=== PATIENT | female | born 1945 | race Caucasian/White ===

== ENCOUNTER 2020-10-10 16:54 | Emergency (ER) | payer MEDICARE | END 2020-10-10 17:25 | disposition home or self-care (01) | LOC: BURERS 16:54 | DX: H11.31 Conjunctival hemorrhage, right eye (principal); I10 Essential (primary) hypertension; E78.5 Hyperlipidemia, unspecified; Z79.899 Other long term (current) drug therapy | CPT/HCPCS: 99283 ==

== ENCOUNTER 2021-09-19 23:08 | Emergency (ER) | payer MEDICARE ==
[~2021-09-19 23:08] MED LIST: NS 0.9% w/ 20 MEQ KCL 1,000 ML BAG ONE
[2021-09-19] MEDS ORDERED: Lidocaine 1% w/Epinephrine 1:100K 20 ML VIAL ONE (23:51)
[2021-09-19] MEDS ORDERED: Boostrix 0.5 ML (Tdap) VIAL ONE (23:51)
[2021-09-19] MEDS ORDERED: Ondansetron PF 4 MG/2 ML Vial ONE (23:53)
[2021-09-19 23:58] LABS: ALT (SGPT) 68 U/L (8-55); AST (SGOT) 69 U/L (5-34); Alkaline Phosphatase 69 U/L (40-110); Anion Gap 15 mmol/L (10-20); BUN (Urea Nitrogen) 18 mg/dL (9.8-20.1); Bilirubin, Total 0.7 mg/dL (0.2-1.2); Calc. Creatinine Clearance 0 mL/min (70-130); Calcium 9.7 mg/dL (7.8-10.44); Carbon Dioxide 26 mmol/L (23-31); Chloride 100 mmol/L (98-107); Globulin 1.8 g/dL (2.4-3.5); Glucose 128 mg/dL (83-110); Hemoglobin 12.7 g/dL (12.0-16.0); Mean Corpuscular HGB CONC 35.2 g/dL (32.0-36.0); Mean Corpuscular Hemoglobin 32.8 pg (27.0-31.0); Mean Corpuscular Volume 93.1 fL (78.0-98.0); Mean Platelet Volume 6.9 fL (7.4-10.4); Platelet Count 201 thou/uL (130-400); Protein, Total 5.8 g/dL (5.8-8.1); RBC Distribution Width 11.6 % (11.5-14.5); Red Blood Cell (RBC) Count 3.87 mill/uL (4.20-5.40); Sodium 138 mmol/L (136-145); White Blood Cell (WBC) Count 5.7 thou/uL (4.8-10.8)
[2021-09-20 00:07] LABS: Potassium 2.7 mmol/L (3.5-5.1)
[2021-09-20] MEDS ORDERED: Bacitracin 1 PK ONE (00:26)
[2021-09-20 00:37] LABS: Eosinophils 1 % (0-10); Lymphocytes 40 % (21-51); MDiff Complete? YES; Monocytes 8 % (0-10); Neutrophil 51 % (42-75); Platelet Morphology Comment Appears Adequate; RBC Morphology Normal
[2021-09-20] MEDS ORDERED: Potassium Chloride 20 MEQ TAB ONE (00:40)
[2021-09-20 01:44] LABS: SARS-CoV-2 NAA Rapid Test Not Detected (NotDetected)
[2021-09-20] MEDS ORDERED: Cephalexin 250 MG CAP ONE (02:05)
[2021-09-20 02:37] LABS: Bilirubin Negative (Negative); Blood, Urine Trace (Negative); Clarity Clear (Clear); Glucose, Urine (Dipstick) Negative (Negative); Ketone, Urine Negative (Negative); Leukocyte Negative (Negative); Nitrite Negative (Negative); Protein, Urine (Dipstick) Negative (Neg-Trace); Urobilinogen 0.2 mg/dL (Less than 2); pH, Urine 7.5 (5.0-9.0)
[2021-09-20 02:44] LABS: RBC/HPF 0-3 HPF (0-3); Squamous Epithelial 0-3 HPF (0-3); WBC/HPF 0-3 HPF (0-3)
[2021-09-20 02:45] LABS: Bacteria/HPF None Seen HPF (None Seen)
== END 2021-09-20 02:35 | disposition short-term general hospital (02) ==
LOC: BURERS 23:08
DX: S01.81XA Laceration without foreign body of other part of head, initial encounter (principal); R00.1 Bradycardia, unspecified; E87.6 Hypokalemia; R55 Syncope and collapse; E78.5 Hyperlipidemia, unspecified; I10 Essential (primary) hypertension; Z79.899 Other long term (current) drug therapy; W17.89XA Other fall from one level to another, initial encounter
CPT/HCPCS: 70450; 72125; 83605; 84484; 90715; 93005; 94760; U0002; 12052; 80053; 81003; 81015; 84443; 85025; 90471; 96365; 96366; 96375; J2405; J3480